=== PATIENT | male | born 1985 | race Asian ===

== ENCOUNTER 2021-04-18 20:57 | Emergency (ER) | payer OTHER ==
[2021-04-18 21:23] VITALS: BP 130/83; PULSE 67; TEMP 98.6; BMI 22.8
== END 2021-04-18 22:17 | disposition home or self-care (01) ==
LOC: JERFT 20:57
PROC: 2W3CX1Z Immobilization of Right Lower Arm using Splint (ICD-10-PCS; principal; 2021-04-18)
DX: S67.21XA Crushing injury of right hand, initial encounter (principal)
CPT/HCPCS: 73130-TC-RT-FY; 99284-25